=== PATIENT | male | born 1985 | race African-American/Black ===

== ENCOUNTER → 2020-08-29 | Outpatient (CLI) | payer OTHER | LOC: COL.RAD 09:51 → EDBD 10:30 → COL.RAD 10:30 | DX: K21.9 Gastro-esophageal reflux disease without esophagitis (principal) ==

== ENCOUNTER 2020-09-06 08:25 | Day surgery (SDC) | payer OTHER ==
[~2020-09-06] VITALS: Ht 172.7 cm; Wt 91.8 kg
[2020-09-06] VITALS (10 sets, daily range): BP systolic 112–132; BP diastolic 71–87; PULSE 65–109; TEMP 98–98.3
[2020-09-06] MEDS ORDERED: PROTONIX 40MG T40 MG PO (09:00)
--- NOTE | 2020-09-06 11:15 | NUR ---
The patient was taken back via cart to the operating room at this time. The patient's chart was sent with him. The patient's belongings were taken over to the recovery room and will be transferred with him up to the 3rd floor post operatively.
--- NOTE | 2020-09-06 14:00 | NUR ---
Patient arrived to floor at 1355. He is drowsy and oriented. His only complaint is that he has gas pain in his shoulders. No complaints of nausea. Lapsites x6 to abdomen, bandaids are C/D/I. SCD's to BLE. Oreinted patient to room. No other changes at this time. Call light within reach.
--- NOTE | 2020-09-06 18:30 | NUR ---
Patient had been sleeping since surgery. He woke up at 1730 and was asking about food. Called again about his food tray. Offered him some pudding or jello and he wanted to wait until his tray came. He has been drinking water without issues. He just wanted to speak to a corporate accounting manager because he stated he is having nausea and pain but nobody is taking care of him. Explained we have been in several times. He did not remember us being in the room. He thought nobody had been in his room since arriving to the floor. He stated he has been asking for pain meds and nausea medication. I was in his room at 1820, we discussed pain medication and nausea. Patient stated he was nauseated because he needed food. Discussed giving him pudding and he stated he needed more water. Discussed that he has not voided yet, he stated he does not have the urge. Discussed that if his bladder is full it could cause some pain as well. He verbalized understanding. When Heather the ULTRASOUND SONOGRAPHER went to take him the pudding, water and to bladder scan him a few minutes later is when he stated that he was not being taken care of properly and that nobody is checking on him unless he calls. A Adela went and spoke with patient and we went in and discussed that this nurse and both ULTRASOUND SONOGRAPHER's have been in his room several times. Discussed giving him pain medication and nausea medication. He stated he would attempt to void. Patient stated he did not understand why I was worried about him not voiding. Have offered several times to get patient up to walk to help with the gas pain but he stated he could not handle that. No other changes at this time. Call light within reach.
--- NOTE | 2020-09-06 19:00 | NUR ---
Zofran and norco given. Encouraged patient to eat the pudding with his norco. His dinner tray has arrived from the kitchen. He is sitting up eating and drinking his dinner. He stated his nausea is better. No other changes at this time.
--- NOTE | 2020-09-06 20:26 | NUR ---
a/ox4. c/o mid-abdominal pain/gas pain and pain to incision sites, rate 3/10. States relief with prn pain meds and nausea meds given by day RN. IV to RAC intact with fluids infusing, dressing CDI. x6 incision sites with bandaid in place, no complications. SCD in place to BLE. on 2.LO2. Ice water provided as requested. Call light within reach. Needs met at this time.
--- NOTE | 2020-09-06 22:40 | NUR ---
PT WEARS A CPAP AT HOME. PT DID NOT BRING. PT STATED " I CAN WEAR OXYGEN TONIGHT WHEN SLEEPING TONIGHT" DISCUSSED WITH PT THAT THE HOSPITAL HAS A CPAP HE CAN WEAR WHILE HE IS HERE AT THE HOSPITAL, PT DECLINED AND OPTED TO WEAR OXYGEN INSTEAD.
--- NOTE | 2020-09-06 22:56 | NUR ---
Pt requested pain meds for abdominal pain, prn norco administered as requested. Denies nausea. Pt up to use BR. Needs and questions answered. Call light within reach.
[2020-09-07 00:41] VITALS: BP 102/57; PULSE 68; TEMP 98.4
[2020-09-07 04:00] VITALS: BP 128/71; PULSE 68; TEMP 98.1
--- NOTE | 2020-09-07 05:20 | NUR ---
Pt up to use BR with urine output. c/o epigastric pain, rate 3.5/10, prn pain med administered as requested. Needs met. Call light within reach.
--- NOTE | 2020-09-07 07:08 | NUR ---
Report given to JUVENTINO Gagnon.
[2020-09-07 07:34] VITALS: BP 117/68; PULSE 75; TEMP 97.7
--- NOTE | 2020-09-07 09:01 | NUR ---
First visit from the vinyl flooring installer. No needs right now.
[2020-09-07] MEDS ORDERED: NORCO 325 MG-51 TAB PO (10:47)
--- NOTE | 2020-09-07 12:08 | NUR ---
PATIENT ASSESSMENT COMPLETED AT THIS TIME. PATIENT CURRENTLY RATING HIS PAIN 2/10 IN THE ABDOMEN AFTER NORCO. ABDOMINAL LAP SITES X6 DRESSED WITH BANDAIDS AND ARE CD&I. DISCHARGE INSTRUCTIONS REVIEWED WITH PATIENT. QUESTIONS SOUGHT AND ANSWERED. AWAITING PATIENTS RIDE FOR DISCHARGE. PATIENT DENIES ANY OTHER NEEDS AT THIS TIME.
[2020-09-07 12:30] VITALS: BP 113/72; PULSE 85; TEMP 97.8
--- NOTE | 2020-09-07 13:45 | NUR ---
PATIENT RIDE ARRIVED. PATIENT PERSONAL BELONGINGS GATHERED. PATIENT TAKEN TO PERSONAL VEHICLE VIA WHEELCHAIR. PATIENT DISCHARGED.
== END 2020-09-07 13:45 | disposition home or self-care (01) ==
LOC: SDCO 08:25 → SURG 08:25 → SDCO 11:30 → SURG 14:00 → SDCO 09-07 13:45
DX: K21.9 Gastro-esophageal reflux disease without esophagitis (principal); K44.9 Diaphragmatic hernia without obstruction or gangrene; Z20.828 Contact with and (suspected) exposure to other viral communicable diseases
CPT/HCPCS: OP; J0690; J1100; J1885; J2175; J2250; J2310; J2405; J2704; J3010; J7120